=== PATIENT | female | born 1970 | race Caucasian/White ===

== ENCOUNTER 2019-03-25 20:54 | Emergency (ER) | payer OTHER ==
[~2019-03-25] VITALS: Ht 165.1 cm; Wt 92.5 kg
[2019-03-25] MEDS ORDERED: AUGMENTIN 875875 MG PO (21:15)
== END 2019-03-25 21:58 | disposition home or self-care (01) ==
LOC: ED 20:54
DX: H66.91 Otitis media, unspecified, right ear (principal); F17.200 Nicotine dependence, unspecified, uncomplicated